=== PATIENT | male | born 1950 | race Caucasian/White ===

== ENCOUNTER 2016-09-14 08:56 | Emergency (ER) | payer BC ==
[~2016-09-14] VITALS: Ht 177.8 cm; Wt 89.1 kg
[~2016-09-14 08:56] MED LIST: ASPI81TA21 PO; ATOR80TA PO; CLR10 PO; ENAL1TAB31 PO; LEVO100T7 PO; METO100T7 PO
[2016-09-14 09:07] VITALS: TEMP 36.6; Ht 177.8 cm; Wt 89.1 kg
[2016-09-14] MEDS ORDERED: ONDANSETRON INJ 2 MG/ML 2 ML VIAL IV STA (09:13)
[2016-09-14] MEDS ORDERED: ALUMINUM/MAGNESIUM SUSP 30 ML UDC PO STA (09:15)
[2016-09-14] MEDS ORDERED: PANTOprazole SOD 40 MG TAB PO STA (09:15)
[2016-09-14 09:18] VITALS: O2SAT 95
--- NOTE | 2016-09-14 09:26 | EMERGENCY ROOM VISIT NOTE ---
History Report prepared by Sonja: Dottie Alfaro Under the Supervision of: Dr. Dennis Han D.O. First contact with patient: 09:11 Chief Complaint: NAUSEA Stated Complaint: L SHOULDER PAIN, NAUSEA, SHAKING Nursing Triage Summary: pt reports for the past several days nausea, chest pain, left shoulder pain and indigestion. pt reports hx of anxiety and he took his anxiety medication prior to coming into ed. History of Present Illness The patient is a 66 year old male who presents to the Emergency Room with complaints of chest pain and left shoulder pain as well as nausea. The patient states he's had intermittent episodes of this discomfort for quite some time. He called the nursing advice line on the back of his medical insurance card and was instructed to go to the emergency department. The patient also complains of some shortness of breath but states that is been ongoing for many years and is no change. He states when he works this pain actually improves. He denies any radiation of the pain. He denies having any lower extremity edema. He does admit to some "indigestion" but he tried over the counter antacids without relief. The patient does have a family history of coronary artery disease. He's had a stress test in the past but states that it was not positive. The patient states his symptoms are mild at this time. He denies having any GI bleeding or diarrhea. He denies having any abdominal pain or back pain. Source of History: patient Onset: quite some time Position: chest Timing: intermittent Associated Symptoms: + SOB, + nausea, No abdominal pain, No back pain, No diarrhea Note: Associated Symptoms: left shoulder pain, indigestion Review of Systems See HPI for pertinent positives & negatives. A total of 10 systems reviewed and were otherwise negative. Past Medical & Surgical Medical Problems: (1) Diverticulosis Colon (W/O Ment Of Hemorrhage) (2) Hyperlipidemia Nec/Nos (3) Hypertension Nos (4) Hypertrophy (Benign) Of Prostate W/O Urinary Obst & Oth Luts (5) Personal History Of Colonic Polyps (6) Personal History Of Urinary Calculi Family History Hypertension Social History Smoking Status: Never Smoker Alcohol Use: none Drug Use: none Marital Status: Housing Status: lives with family Occupation Status: employed Current/Historical Medications Scheduled Aspirin Enteric Coated (Ecotrin Or Generic), 81 MG PO QAM Atorvastatin Calcium (Lipitor), 80 MG PO HS Enalapril Maleate (Vasotec), 20 MG PO BID Levothyroxine Sodium (Levothyroxine Sodium), 1 TAB PO QAM Loratadine (Claritin), 10 MG PO QAM Metoprolol Succinate (Toprol Xl), 100 MG PO QAM Omeprazole (Prilosec), 20 MG PO DAILY Allergies Coded Allergies: Cilostazol (Verified Allergy, Unknown, palpitations, 09/14/16) per mnpg Naproxen (Verified Allergy, Unknown, emotional changes, 09/14/16) made pt cry uncontrollably Physical Exam Vital Signs Date Time Temp Pulse Resp B/P Pulse Ox O2 Delivery O2 Flow Rate FiO2 09/14/16 13:12 57 18 108/75 96 Room Air 09/14/16 12:24 55 18 112/72 96 Room Air 09/14/16 11:07 57 18 123/73 97 Room Air 09/14/16 10:20 55 16 116/76 96 Room Air 09/14/16 09:26 63 09/14/16 09:18 95 Room Air 09/14/16 09:07 36.6 71 20 139/90 98 Room Air Physical Exam GENERAL: Patient is awake alert in no acute distress patient is resting comfortably and showing no signs of anxiety EYES: The conjunctivae are clear. The pupils are round and reactive. EARS, NOSE, MOUTH AND THROAT: The nose is without any evidence of any deformity. Mucous membranes are moist tongue is midline NECK: The neck is nontender and supple. RESPIRATORY: Normal respiratory effort is noted there is no evidence of wheezing rhonchi or rales CARDIOVASCULAR: Regular rate and rhythm noted there no murmurs rubs or gallops normal S1 normal S2 GASTROINTESTINAL: The abdomen is soft. There is mild epigastric tenderness to palpation but no guarding or rigidity. MUSCULOSKELETAL/EXTREMITIES: There is no evidence of gross deformity full range of motion is noted in the hips and shoulders SKIN: There is no obvious evidence of any rash. There are no petechiae, pallor or cyanosis noted. NEUROLOGIC: Patient is awake alert and oriented x3. Medical Decision & Procedures ER Provider Diagnostic Interpretation: X-ray results as stated below per interpretation by me and the radiologist. CHEST ONE VIEW PORTABLE CLINICAL HISTORY: ABDOMINAL PAIN/GI nausea COMPARISON STUDY: 03/14/2016 FINDINGS: The bones soft tissues and hemidiaphragms are normal. The cardiomediastinal silhouette is normal. The lungs are clear. The pulmonary vasculature is normal. IMPRESSION: Negative chest. Electronically signed by: Fletcher Rios M.D. 09/14/2016 9:54 AM Dictated Date/Time: 09/14/2016 9:52 AM US results as stated below per my review and radiologist interpretation. ABDOMINAL ULTRASOUND, RIGHT UPPER QUADRANT HISTORY: Upper abdominal pain. .. COMPARISON: CTA of the abdomen and pelvis 04/28/2015 FINDINGS: Pancreas: The pancreatic head and tail are obscured by overlying bowel gas. The remaining portions of the pancreas are within normal limits. Liver: The liver is echogenic consistent with fatty change. Gallbladder: No gallbladder wall thickening. No gallstones. CBD: 4 mm. Right kidney: No hydronephrosis. Stable 1.3 cm parapelvic cyst. IMPRESSION: Normal gallbladder. No gallstones. Electronically signed by: Anatoliy Crouch M.D. 09/14/2016 11:29 AM Dictated Date/Time: 09/14/2016 11:11 AM Laboratory Results 09/14/16 09:21 Red Blood Count 4.95, Mean Corpuscular Volume 92.7, Mean Corpuscular Hemoglobin 32.7, Mean Corpuscular Hemoglobin Concent 35.3, Mean Platelet Volume 9.8, Neutrophils (%) (Auto) 57.4, Lymphocytes (%) (Auto) 34.7, Monocytes (%) (Auto) 6.1, Eosinophils (%) (Auto) 0.8, Basophils (%) (Auto) 0.8, Neutrophils # (Auto) 3.58, Lymphocytes # (Auto) 2.16, Monocytes # (Auto) 0.38, Eosinophils # (Auto) 0.05, Basophils # (Auto) 0.05 09/14/16 09:21 Test 09/14/16 09:21 09/14/16 11:20 09/14/16 12:22 White Blood Count 6.23 K/uL (4.8-10.8) Red Blood Count 4.95 M/uL (4.7-6.1) Hemoglobin 16.2 g/dL (14.0-18.0) Hematocrit 45.9 % (42-52) Mean Corpuscular Volume 92.7 fL (80-100) Mean Corpuscular Hemoglobin 32.7 pg (25-34) Mean Corpuscular Hemoglobin Concent 35.3 g/dl (32-36) Platelet Count 191 K/uL (130-400) Mean Platelet Volume 9.8 fL (7.4-10.4) Neutrophils (%) (Auto) 57.4 % Lymphocytes (%) (Auto) 34.7 % Monocytes (%) (Auto) 6.1 % Eosinophils (%) (Auto) 0.8 % Basophils (%) (Auto) 0.8 % Neutrophils # (Auto) 3.58 K/uL (1.4-6.5) Lymphocytes # (Auto) 2.16 K/uL (1.2-3.4) Monocytes # (Auto) 0.38 K/uL (0.11-0.59) Eosinophils # (Auto) 0.05 K/uL (0-0.5) Basophils # (Auto) 0.05 K/uL (0-0.2) RDW Standard Deviation 42.0 fL (36.4-46.3) RDW Coefficient of Variation 12.5 % (11.5-14.5) Immature Granulocyte % (Auto) 0.2 % Immature Granulocyte # (Auto) 0.01 K/uL (0.00-0.02) Prothrombin Time 10.3 SECONDS (9.0-12.0) Prothromb Time International Ratio 1.0 (0.9-1.1) Activated Partial Thromboplast Time 26.5 SECONDS (21.0-31.0) Partial Thromboplastin Ratio 1.0 Anion Gap 10.0 mmol/L (3-11) Est Creatinine Clear Calc Drug Dose 69.0 ml/min Estimated GFR () 73.1 Estimated GFR (Non- 63.1 BUN/Creatinine Ratio 11.0 (10-20) Calcium Level 9.6 mg/dl (8.5-10.1) Total Bilirubin 2.1 mg/dl (0.2-1) Direct Bilirubin 0.3 mg/dl (0-0.2) Aspartate Amino Transf (AST/SGOT) 24 U/L (15-37) Alanine Aminotransferase (ALT/SGPT) 38 U/L (12-78) Alkaline Phosphatase 95 U/L (45-117) Total Creatine Kinase 133 U/L (39-308) Creatine Kinase MB 1.3 ng/ml (0.5-3.6) Creatine Kinase MB Ratio 1.0 (0-3.0) Total Protein 7.8 gm/dl (6.4-8.2) Albumin 4.1 gm/dl (3.4-5.0) Lipase 430 U/L (73-393) Urine Color YELLOW Urine Appearance CLEAR (CLEAR) Urine pH 7.5 (4.5-7.5) Urine Specific [place] 1.004 (1.000-1.030) Urine Protein NEG (NEG) Urine Glucose (UA) NEG (NEG) Urine Ketones NEG (NEG) Urine Occult Blood NEG (NEG) Urine Nitrite NEG (NEG) Urine Bilirubin NEG (NEG) Urine Urobilinogen NEG (NEG) Urine Leukocyte Esterase NEG (NEG) Troponin I < 0.015 ng/ml (0-0.045) Laboratory results per my review. Medications Administered Medications (Trade) Dose Ordered Sig/Kerrie Route Start Time Stop Time Status Last Admin Dose Admin Ondansetron HCl (Zofran Inj) 4 mg NOW STAT IV 09/14/16 09:13 09/14/16 09:15 DC 09/14/16 09:31 4 MG Pantoprazole Sodium (Protonix Tab) 40 mg NOW STAT PO 09/14/16 09:15 09/14/16 09:16 DC 09/14/16 09:31 40 MG Al Hydroxide/Mg Hydroxide (Maalox Susp) 30 ml NOW STAT PO 09/14/16 09:15 09/14/16 09:16 DC 09/14/16 09:31 30 ML ECG Indication: chest pain Rate (beats per minute): 64 Rhythm: normal sinus Findings: no acute ischemic change, no ectopy Change: no significant change (03/14/2016) Change: Repeat EKG: Sinus bradycardia, 56 beats per minute. No ectopy, no acute ST segment abnormalities, no change from previous EKG. ED Course 0911: The patient was evaluated in room B5. A complete history and physical examination were performed. 13: Ordered Zofran Inj 4 mg IV. 15: Ordered Maalox Susp 30 ml PO, Protonix Tab 40 mg PO. 1311: I reevaluated the patient and he is doing well. I discussed the exam findings with him and I discussed the treatment plan. He verbalized complete understanding and agreement. He is ready to go home. Medical Decision Prior records/ancillary studies reviewed. Triage Nursing notes reviewed. The patient's history was concerning for chest pain. Differential diagnosis: Etiologies such as cardiac ischemia, aortic dissection, pulmonary embolism, pneumonia, pneumothorax, musculoskeletal, infections, pericarditis, myocarditis , esophageal rupture, gastrointestinal, as well as others were entertained. The patient is a 66-year-old male who presented to the emergency department for left-sided chest pain. The patient's pain was somewhat reproducible. He called the nurse number on the back of his insurance card and was instructed to come to the emergency department. The patient's EKG did not reveal signs of ischemia. He had serial troponin draws in the emergency Department which did not reveal any acute elevation. I discussed patient's laboratory and radiographic studies with him. I also discussed the limitations of the emergency department workup for chest pain with him. He was encouraged to rest and avoid any strenuous activity. He was also encouraged to continue all medications as prescribed. He was also encouraged to return to the emergency apartment immediately if symptoms change worsen or the need arises. Otherwise he was encouraged to discuss the possibility with his family doctor that he may require a stress test or further evaluation of this discomfort. Impression Primary Impression: Left sided chest pain Scribe Attestation The scribe's documentation has been prepared under my direction and personally reviewed by me in its entirety. I confirm that the note above accurately reflects all work, treatment, procedures, and medical decision making performed by me. Departure Information Dispostion Home / Self-Care Prescriptions Omeprazole (PRILOSEC) 20 Mg Cap 20 MG PO DAILY, #30 CAP Prov: Dennis Han, DO 09/14/16 Referrals Derrick Colon M.D. (PCP) Forms HOME CARE DOCUMENTATION FORM, IMPORTANT VISIT INFORMATION, Work Instructions Patient Instructions ED Chest Pain Atypical Unkn Cause, My [facility] Additional Instructions Call your family to schedule a follow-up appointment. Rest and avoid any strenuous activity. Continue all medications as prescribed. Return to the emergency department immediately if symptoms change worsen or if the need arises.
[2016-09-14 09:33] LABS: BASO % 0.8 %; BASO ABS # 0.05 K/uL (0-0.2); COMPLETE YES; EOS % 0.8 %; HEMATOCRIT 45.9 % (42-52); IG% 0.2 %; LYMPH % 34.7 %; LYMPH ABS # 2.16 K/uL (1.2-3.4); MEAN CELL VOLUME 92.7 fL (80-100); MEAN CORPUSCULAR HEMOGLOBIN 32.7 pg (25-34); MEAN CORPUSCULAR HGB CONC 35.3 g/dl (32-36); MEAN PLATELET VOLUME 9.8 fL (7.4-10.4); MONO % 6.1 %; NEUT % 57.4 %; PLATELET COUNT 191 K/uL (130-400); RED BLOOD COUNT 4.95 M/uL (4.7-6.1); WHITE BLOOD COUNT 6.23 K/uL (4.8-10.8)
[2016-09-14 09:42] LABS: PROTHROMBIN TIME (PATIENT) 10.3 SECONDS (9.0-12.0)
[2016-09-14 09:50] LABS: ALT/SGPT 38 U/L (12-78); AST/SGOT 24 U/L (15-37); BLOOD UREA NITROGEN 13 mg/dl (7-18); CALCIUM 9.6 mg/dl (8.5-10.1); CARBON DIOXIDE 25 mmol/L (21-32); CHLORIDE 104 mmol/L (98-107); GLUCOSE 105 mg/dl (70-99); SODIUM 139 mmol/L (136-145)
[2016-09-14 09:55] LABS: ALKALINE PHOSPHATASE 95 U/L (45-117)
--- NOTE | 2016-09-14 09:55 | DIAGNOSTIC IMAGING REPORT ---
CHEST ONE VIEW PORTABLE CLINICAL HISTORY: ABDOMINAL PAIN/GI nausea COMPARISON STUDY: 03/14/2016 FINDINGS: The bones soft tissues and hemidiaphragms are normal. The cardiomediastinal silhouette is normal. The lungs are clear. The pulmonary vasculature is normal. IMPRESSION: Negative chest. Electronically signed by: Fletcher Rios M.D. 09/14/2016 9:54 AM Dictated Date/Time: 09/14/2016 9:52 AM
--- NOTE | 2016-09-14 11:31 | DIAGNOSTIC IMAGING REPORT ---
ABDOMINAL ULTRASOUND, RIGHT UPPER QUADRANT HISTORY: Upper abdominal pain. .. COMPARISON: CTA of the abdomen and pelvis 04/28/2015 FINDINGS: Pancreas: The pancreatic head and tail are obscured by overlying bowel gas. The remaining portions of the pancreas are within normal limits. Liver: The liver is echogenic consistent with fatty change. Gallbladder: No gallbladder wall thickening. No gallstones. CBD: 4 mm. Right kidney: No hydronephrosis. Stable 1.3 cm parapelvic cyst. IMPRESSION: Normal gallbladder. No gallstones. Electronically signed by: Anatoliy Crouch M.D. 09/14/2016 11:29 AM Dictated Date/Time: 09/14/2016 11:11 AM
[2016-09-14 11:40] LABS: URINE APPEARANCE CLEAR (CLEAR); URINE BILIRUBIN NEG (NEG); URINE COLOR YELLOW; URINE NITRITE NEG (NEG); URINE PH 7.5 (4.5-7.5); URINE SPECIFIC GRAVITY 1.004 (1.000-1.030); UROBILINOGEN NEG (NEG)
[2016-09-14 11:44] LABS: MANUAL MICROSCOPIC REQUIRED? NO; REVIEW REQ? NO
[2016-09-14] MEDS ORDERED: OMEP20CA9 PO (13:03)
[2016-09-14 13:12] VITALS: BP 108/75; PULSE 57; O2SAT 96
== END 2016-09-14 13:39 | disposition home or self-care (01) ==
LOC: C.EDB 08:58
DX: R07.89 Other chest pain (principal); I10 Essential (primary) hypertension; E78.5 Hyperlipidemia, unspecified; K57.30 Diverticulosis of large intestine without perforation or abscess without bleeding; N40.0 Benign prostatic hyperplasia without lower urinary tract symptoms; Z86.010 Personal history of colon polyps; Z87.440 Personal history of urinary (tract) infections; Z79.82 Long term (current) use of aspirin; Z79.899 Other long term (current) drug therapy; Z88.8 Allergy status to other drugs, medicaments and biological substances; Z82.49 Family history of ischemic heart disease and other diseases of the circulatory system

== ENCOUNTER → 2016-12-08 | Outpatient (CLI) | payer BC ==
[2016-12-08 17:34] LABS: MEAN CELL VOLUME 93.2 fL (80-100); MEAN CORPUSCULAR HEMOGLOBIN 31.5 pg (25-34); MEAN CORPUSCULAR HGB CONC 33.8 g/dl (32-36); MEAN PLATELET VOLUME 10.6 fL (7.4-10.4); PLATELET COUNT 182 K/uL (130-400); RED BLOOD COUNT 4.83 M/uL (4.7-6.1); WHITE BLOOD COUNT 7.47 K/uL (4.8-10.8)
[2016-12-08 17:58] LABS: ALT/SGPT 40 U/L (12-78); AST/SGOT 36 U/L (15-37); BLOOD UREA NITROGEN 16 mg/dl (7-18); BUN/CREATININE RATIO 16.1 (10-20); CALCIUM 9.2 mg/dl (8.5-10.1); CARBON DIOXIDE 28 mmol/L (21-32); CHLORIDE 108 mmol/L (98-107); GLUCOSE 89 mg/dl (70-99); POTASSIUM 4.5 mmol/L (3.5-5.1); SODIUM 140 mmol/L (136-145)
[2016-12-08 18:09] LABS: ALB/GLOB RATIO 1.1 (0.9-2); ALKALINE PHOSPHATASE 103 U/L (45-117)
[2016-12-08 18:24] LABS: LYME DISEASE AB IGG NEG (NEG); LYME DISEASE AB IGM NEG (NEG)
== END | disposition home or self-care (01) ==
LOC: C.LABBFT 10:45
PROVIDERS: ATTEND Physician Assistant Medical
DX: R53.83 Other fatigue (principal)

== ENCOUNTER → 2017-04-19 | Outpatient (CLI) | payer BC ==
[2017-04-19 12:06] LABS: BASO % 0.4 %; BASO ABS # 0.03 K/uL (0-0.2); COMPLETE YES; HEMATOCRIT 45.7 % (42-52); IG% 0.4 %; LYMPH % 36.4 %; LYMPH ABS # 2.53 K/uL (1.2-3.4); MEAN CORPUSCULAR HEMOGLOBIN 31.7 pg (25-34); MEAN CORPUSCULAR HGB CONC 33.7 g/dl (32-36); MEAN PLATELET VOLUME 10.2 fL (7.4-10.4); MONO % 8.8 %; PLATELET COUNT 206 K/uL (130-400); RED BLOOD COUNT 4.86 M/uL (4.7-6.1); WHITE BLOOD COUNT 6.96 K/uL (4.8-10.8)
[2017-04-19 12:24] LABS: ALT/SGPT 21 U/L (12-78); AST/SGOT 16 U/L (15-37); BLOOD UREA NITROGEN 14 mg/dl (7-18); BUN/CREATININE RATIO 12.8 (10-20); CALCIUM 8.8 mg/dl (8.5-10.1); CARBON DIOXIDE 26 mmol/L (21-32); CHLORIDE 106 mmol/L (98-107); GLUCOSE 95 mg/dl (70-99); POTASSIUM 4.3 mmol/L (3.5-5.1); SODIUM 137 mmol/L (136-145)
[2017-04-19 12:36] LABS: ALB/GLOB RATIO 1.1 (0.9-2); ALKALINE PHOSPHATASE 85 U/L (45-117); CHOLESTEROL 158 mg/dl (0-200); CHOLESTEROL/HDL RATIO 3.7; HDL CHOLESTEROL 43 mg/dl; LDL CHOLESTEROL CALCULATED 86 mg/dl; PROSTATE SPECIFIC ANTIGEN 0.953 ng/ml (0.000-4.000); TRIGLYCERIDES 147 mg/dl (0-150); VERY LOW DENSITY LIPOPROT CALC 29 mg/dl
== END | disposition home or self-care (01) ==
LOC: C.LABBFT 08:16
PROVIDERS: ATTEND Internal Medicine
DX: I10 Essential (primary) hypertension (principal); E78.5 Hyperlipidemia, unspecified; E03.9 Hypothyroidism, unspecified; Z12.5 Encounter for screening for malignant neoplasm of prostate

== ENCOUNTER → 2017-05-23 | Outpatient (CLI) | payer BC ==
--- NOTE | 2017-05-23 11:46 | DIAGNOSTIC IMAGING REPORT ---
VENOUS DOPP LOWER EXT UNILAT CLINICAL HISTORY: R60.0 Edema of left lower extremity pain. Edema. TECHNIQUE: Venous Doppler COMPARISON STUDY: None FINDINGS: Findings of acute deep venous thrombosis posterior tibial vein. Somewhat irregular flow of the smaller vessels lower leg. Venous structures superior to the knee are unremarkable. IMPRESSION: Findings of focal acute deep venous thrombosis left lower leg inferior to the knee. No involvement superior to the knee. The above report was generated using voice recognition software. It may contain grammatical, syntax or spelling errors. Electronically signed by: Fletcher Rios M.D. 05/23/2017 11:45 AM Dictated Date/Time: 05/23/2017 11:42 AM
== END | disposition home or self-care (01) ==
LOC: C.ULTR 11:09
PROVIDERS: ATTEND Internal Medicine
DX: R60.0 Localized edema (principal); I82.4Z2 Acute embolism and thrombosis of unspecified deep veins of left distal lower extremity

== ENCOUNTER → 2017-09-23 | Outpatient (CLI) | payer BC ==
--- NOTE | 2017-09-23 14:03 | DIAGNOSTIC IMAGING REPORT ---
LEFT LOWER EXTREMITY VENOUS DOPPLER CLINICAL HISTORY: Left leg swelling. COMPARISON STUDY: Left lower extremity venous Doppler May 23, 2017. TECHNIQUE: Sonography of the deep venous system of the left lower extremity was performed. Compression and augmentation were evaluated. FINDINGS: The left common femoral, superficial femoral and popliteal veins were compressible. Augmentation was normal. No was made of suspected nonocclusive thrombus within the left posterior tibial and peroneal veins which is similar to exam of May 23, 2017. This is probably chronic. IMPRESSION: 1. Suspected nonocclusive deep venous thrombus within the left posterior tibial and peroneal veins which is similar to exam of May 23, 2017. This thrombus is likely chronic. 2. No [id number] deep venous thrombus within the left lower extremity. Electronically signed by: Virgil Martin M.D. 09/23/2017 2:02 PM Dictated Date/Time: 09/23/2017 1:59 PM
== END | disposition home or self-care (01) ==
LOC: C.ULTR 13:17
PROVIDERS: ATTEND Physician Assistant Medical
DX: M79.89 Other specified soft tissue disorders (principal)

== ENCOUNTER → 2017-10-17 | Outpatient (CLI) | payer BC ==
[2017-10-17 12:43] LABS: BASO % 0.4 %; BASO ABS # 0.03 K/uL (0-0.2); EOS ABS # 0.07 K/uL (0-0.5); HEMATOCRIT 44.9 % (42-52); HEMOGLOBIN 15.2 g/dL (14.0-18.0); IG# 0.03 K/uL (0.00-0.02); LYMPH % 29.8 %; LYMPH ABS # 2.19 K/uL (1.2-3.4); MEAN CELL VOLUME 93.2 fL (80-100); MEAN CORPUSCULAR HEMOGLOBIN 31.5 pg (25-34); MEAN CORPUSCULAR HGB CONC 33.9 g/dl (32-36); MEAN PLATELET VOLUME 10.1 fL (7.4-10.4); MONO % 7.3 %; MONO ABS # 0.54 K/uL (0.11-0.59); NEUT % 61.1 %; NEUT ABS # 4.49 K/uL (1.4-6.5); PLATELET COUNT 215 K/uL (130-400); RED CELL DISTRIBUTION WIDTH CV 12.7 % (11.5-14.5); RED CELL DISTRIBUTION WIDTH SD 43.6 fL (36.4-46.3); WHITE BLOOD COUNT 7.35 K/uL (4.8-10.8)
[2017-10-17 13:51] LABS: ALBUMIN 3.6 gm/dl (3.4-5.0); ALT/SGPT 21 U/L (12-78); AST/SGOT 11 U/L (15-37); BLOOD UREA NITROGEN 13 mg/dl (7-18); CALCIUM 8.5 mg/dl (8.5-10.1); CARBON DIOXIDE 28 mmol/L (21-32); CHOLESTEROL 144 mg/dl (0-200); GLUCOSE 93 mg/dl (70-99); POTASSIUM 4.4 mmol/L (3.5-5.1); SODIUM 138 mmol/L (136-145)
[2017-10-17 14:01] LABS: ALKALINE PHOSPHATASE 69 U/L (45-117); LDL CHOLESTEROL CALCULATED 71 mg/dl; TOTAL PROTEIN 7.1 gm/dl (6.4-8.2)
== END | disposition home or self-care (01) ==
LOC: C.LABBFT 08:45
PROVIDERS: ATTEND Internal Medicine
DX: E78.5 Hyperlipidemia, unspecified (principal); I10 Essential (primary) hypertension; E03.9 Hypothyroidism, unspecified

== ENCOUNTER → 2017-10-31 | Outpatient (CLI) | payer BC ==
--- NOTE | 2017-10-31 11:10 | DIAGNOSTIC IMAGING REPORT ---
L-SPINE MIN 4 VIEWS ROUTINE CLINICAL HISTORY: 67 years-old Male presenting with M54.5 Low back [id number]. TECHNIQUE: Frontal, bilateral oblique, lateral, and coned in lateral views of the lumbar spine were obtained. COMPARISON: 09/26/2012. FINDINGS: Minimal dextrocurvature of the lumbar spine centered at L2-3. Otherwise normal lumbar lordosis. Vertebral bodies maintain normal height and alignment. Anterior osteophytosis noted at several levels. Intervertebral disc heights are essentially maintained. No evidence of a compression deformity. No gross evidence of osseous neural foraminal narrowing. No evidence of a pars defect. Atherosclerosis. Mild stool burden. IMPRESSION: Mild multilevel degenerative change without radiographic evidence of osseous neural foraminal narrowing or compression deformity. Electronically signed by: Cristian Moseley M.D. 10/31/2017 11:09 AM Dictated Date/Time: 10/31/2017 11:07 AM
--- NOTE | 2017-10-31 11:10 | DIAGNOSTIC IMAGING REPORT ---
L HIP UNILATERAL 2 VIEWS CLINICAL HISTORY: M25.552 left hip pain COMPARISON: None. DISCUSSION: No fractures or dislocations are visualized. There are no erosive or destructive changes. The joint space appears well-preserved for age. IMPRESSION: Unremarkable conventional radiographic evaluation of the left hip for age Electronically signed by: Roddy Roberts M.D. 10/31/2017 11:09 AM Dictated Date/Time: 10/31/2017 11:08 AM
== END | disposition home or self-care (01) ==
LOC: C.RAD1850 10:28
PROVIDERS: ATTEND Internal Medicine
DX: M54.5 Low back pain (principal); M25.552 Pain in left hip

== ENCOUNTER → 2018-02-15 | Outpatient (CLI) | payer BC ==
[~2018-02-15] MED LIST changes: +ALPR0.25 PO; +ASPI-319 PO; -ASPI81TA21 PO; -ATOR80TA PO; +CALC625T13 PO; +FLUO20CA35 PO; -METO100T7 PO; +MOME0.1O TOP; +NIFE30TA83 PO; +PANT1TAB4 PO; +RIVA1TAB4 PO; +ROSU20TA PO; +TPRSR/100 PO; +XRL15 PO
--- NOTE | 2018-02-15 09:54 | DIAGNOSTIC IMAGING REPORT ---
LUMBAR SPINE W/O CONTRAST CLINICAL HISTORY: 67 years-old Male with M54.5 Low back [id number]. Acute low back pain without reported trauma. Low back pain radiates into the left leg. COMPARISON: Lumbar spine radiographs 10/31/2017, lumbar spine MRI 12/05/2013. TECHNIQUE: Multiplanar, multi sequence MRI of the lumbar spine was performed without intravenous contrast. FINDINGS: [employer] Safety Officer localizer images demonstrate no gross abnormality of the visualized abdomen or pelvic structures. Large T2 hyperintense lesions about the left kidney measure up to 4.7 cm, incompletely characterized on this study however suggestive of renal cysts. Cystic changes are also noted involving the seminal vesicles. No aortic aneurysm. No pathologically enlarged lymph nodes are identified. The paraspinal structures demonstrate no acute abnormality. Signal within the imaged thoracic spinal cord appears normal. The conus medullaris terminates at L1. The cauda equina appear to be within normal limits. Modic type I endplate degenerative changes involve the anteroinferior aspect of the L1 vertebral body. Modic type II endplate degenerative changes involve the anteroinferior aspect of the L2 vertebral body. No acute fracture or subluxation is identified. No soft tissue edema or epidural fluid collections. T12-L1: No central canal or neural foraminal stenosis. Mild facet arthrosis. L1-L2: Minimal uncovertebral spurring and mild facet arthrosis. No central canal or foraminal narrowing. L2-L3: Mild intervertebral disc space narrowing with disc desiccation. Mild uncovertebral spurring with small posterior disc bulge. Mild facet arthrosis is also present. There is mild inferior bilateral foraminal narrowing. Central canal is patent however there is mild flattening about the ventral thecal sac. L3-L4: Mild disc desiccation without significant intervertebral disc space narrowing. Mild spondylitic spurring with small circumferential disc bulge favoring the left lateral recess and left neuroforamen. Mild facet arthrosis with ligamentum flavum thickening and trace facet effusions. Central canal is patent. There is mild bilateral foraminal narrowing. L4-L5: Mild disc desiccation without significant intervertebral disc space narrowing. Mild spondylitic spurring with small circumferential annular disc bulge. Ligamentum flavum thickening with mild facet arthrosis and trace facet effusions. Mild flattening of the ventral thecal sac without significant central canal stenosis. Mild to moderate right and mild left foraminal stenosis. L5-S1: No significant intervertebral disc space narrowing or disc bulge. Moderate facet arthrosis with ligamentum flavum thickening. Central canal and right neuroforamen are patent. There is mild left foraminal narrowing. Overall, there is no significant change from comparison study 12/05/2013. IMPRESSION: 1. No acute fracture or subluxation. 2. Modic type I endplate degenerative changes about the anteroinferior endplate of L1. 3. Multilevel annular disc bulging with mild facet arthrosis results in varying degrees of foraminal narrowing as above. No severe central canal or foraminal narrowing identified. The above report was generated using voice recognition software. It may contain grammatical, syntax or spelling errors. Dictated: 02/15/2018 8:38 AM Transcribed: 02/15/2018 9:53 AM [facility] Electronically signed by: Sanford August M.D. 02/15/2018 10:12 AM Dictated Date/Time: 02/15/2018 8:38 AM
== END | disposition home or self-care (01) ==
LOC: C.MRI 07:52
PROVIDERS: ATTEND Physician Assistant Medical
DX: M54.5 Low back pain (principal)